=== PATIENT | female | born 1965 | race Caucasian/White ===

== ENCOUNTER → 2017-07-28 | Day surgery (SDC) | payer OTHER ==
[2017-07-27 12:20] VITALS: BMI 21.7
[~2017-07-28] MED LIST: Bupivacaine HCl 0.5%/Epinephrine 1:200,000/PF 30 ml Vial ONE; Clindamycin/D5W 900 mg/50 ml Premix Bag ONE; Dexamethasone 20 MG/5 ML VIAL ONE; Famotidine/PF 20 mg/2ml Vial ONE; Fentanyl 100 MCG/2 ML VIAL ONE; Fentanyl 250 MCG/5 ML VIAL ONE; Glycopyrrolate 0.2 MG/ML 5 ML SYRINGE ONE; HYDROcodone/Acetaminophen 5/325 mg Tablet ONE; Ketorolac Tromethamine 30 MG/ML VIAL ONE; Levofloxacin 500 mg/D5W 100 ml Premix Bag ONE; Lidocaine 1% PF 5 ML VIAL ONE; Ondansetron HCl/PF 4 MG/2 ML Vial ONE; PHENYLEPHRINE-NS 100 MCG/ML 10 ML SYRINGE ONE; PROPOFOL 200 MG/20 ML VIAL ONE; Promethazine HCl 25 MG/ML VIAL ONE; Thrombin 5000 UNITS/5 ML VIAL ONE; diphenhydrAMINE 50 MG/ML VIAL ONE
--- NOTE | 2017-07-28 00:13 | HP ---
HISTORY OF PRESENT ILLNESS: Ms. Cox is a very pleasant woman who presents for evaluation of a tong mbar disk herniation causing left lower extremity L5-S1 pains, tingling and numbness. She also feels when walking for greater distances, her left leg was weaker. She has had 1 epidural steroid injecti on as well as therapy and has already had a surgical consultation in [place] where she had the recommend ation for L5 disk replacement and L4-L5 fusion. Epidural steroid injection did help a great deal, th erapy not as much. MRI on disk from [facility] reveals a large left eccentric disk ama iation at L5 contacting S1 nerve root on the left fitting her symptoms perfectly. L4 has minimal to n o mild degenerative disk disease. PAST MEDICAL HISTORY: Significant for hypertension. ALLERGIES: PENICILLIN and CODEINE. MEDICATIONS: Hydrochlorothiazide and estrogen. PAST SURGICAL HISTORY: Right knee arthroscopy and hysterectomy. PHYSICAL EXAMINATION: NEUROLOGIC: The patient is alert and oriented x3. Gait is normal. EXTREMITIES: Lower extremity motor exam reveals full strength bilaterally in all muscle groups in lo wer extremities. She does have a positive left straight leg raise and a normal right straight leg ra ise. ASSESSMENT: Lumbar disk herniation and lumbar radicular pain. PLAN: Dr. Rodrigez met with the patient, reviewed imaging and advocated for a left L5 diskectomy. He e xplained to the patient the risks, benefits, and alternatives of the procedure. The patient expresse d understanding and would like to move forward with surgery as discussed. I do believe the patient i s mentally competent and capable of making medical decisions for herself and we will move forward wit h surgery as planned. Danilo Edouard PA-C, dictating for Dr. Earle Rodrigez.
[2017-07-28 07:57] LABS: Anion Gap 14 mmol/L (10-20); BUN (Urea Nitrogen) 10 mg/dL (7.0-18.7); Calc. Creatinine Clearance 88 mL/min (70-130); Carbon Dioxide 27 mmol/L (22-29); Chloride 102 mmol/L (98-107); Estimated GFR-MDRD 82; Glucose 82 mg/dL (70-105); Potassium 3.9 mmol/L (3.5-5.1); Sodium 139 mmol/L (136-145)
--- NOTE | 2017-07-28 16:41 | OP ---
DATE OF SERVICE: 07/28/2017 SURGEON: Niko Rodrigez M.D. DIRECTOR TRADE: Franklin Edouard PA-C. INDICATION: Pain. DIAGNOSIS: L5 disc herniation with left S1 radiculopathy. PROCEDURE: Left L5 discectomy. ANESTHESIA: General. TECHNIQUE: The patient was brought into the operating room and placed under general anesthesia. She was flipped from a supine or prone position on the operating room table. A linear incision was planned over the L5-S1 segment. After prepping and draping and after an appropriate operative pause, the incision was created. Soft tissues were swept left of midline. A self- retaining retractor was placed in the wound for optimal exposure. After confirming the appropriate level of C-arm fluoroscopy, a high-speed cutting drill bit as well as 2, 3, and 4 mm Kerrisons used to perform hemilaminectomy along the inferior aspect of L5 and the superior aspect of S1. The descending S1 nerve root was identified and was noted to be displaced posteriorly. It was mobilized medially with a nerve root retractor. A protuberant disk mass was identified at the L5 disc space. An 11 blade knife was used to perform an annulotomy in the disk and all the soft disc material present within the lateral recesses displacing the nerve root was identified. It was removed. After decompressing the L5-S1 segment, the wound was irrigated. Hemostasis was maintained throughout. The wound was then closed in anatomic layers and a pressure dressing was applied. There were no known procedural complications. [facility]
== END | disposition home or self-care (01) ==
LOC: SDC 07:06
PROVIDERS: ATTEND Neurological Surgery
PROC: 01NB0ZZ Release Lumbar Nerve, Open Approach (ICD-10-PCS; principal; 2017-07-28)
PROC: 0ST20ZZ Resection of Lumbar Vertebral Disc, Open Approach (ICD-10-PCS; principal; 2017-07-28)
DX: M51.17 Intervertebral disc disorders with radiculopathy, lumbosacral region (principal); I10 Essential (primary) hypertension; Z79.899 Other long term (current) drug therapy; Z88.0 Allergy status to penicillin; Z88.5 Allergy status to narcotic agent; Z98.890 Other specified postprocedural states
CPT/HCPCS: 76001; 80048; 96374; 96375; J0131; J0670; J1100; J1200; J1885; J1956; J2001; J2270; J2405; J2550; J2704; J3010; J3490; S0028